=== PATIENT | female | born 1995 | race Caucasian/White ===

== ENCOUNTER 2016-10-30 18:33 | Inpatient (IN) | payer SELFPAY ==
[~2016-10-30] VITALS: Ht 157.5 cm; Wt 96.8 kg
[2016-10-30] MEDS ORDERED: traZODone 50 MG TAB PO PRN (20:00)
[2016-10-30] MEDS ORDERED: MAALOX 30 ML SUSP *UDC PO PRN (20:00)
[2016-10-30] MEDS ORDERED: ACETAMINOPHEN TAB 650MG DOSE (2X325MG) PO PRN (20:00)
[2016-10-30] MEDS ORDERED: MOM 30ML SUSPENSION UDC PO PRN (20:00)
--- NOTE | 2016-10-30 22:10 | EDDOCDS ---
Physician Documentation [facility] Name: Toma Whitaker Age: 21 yrs Sex: Female : 1995 Arrival Date: 10/30/2016 Time: 18:33 Bed BHU1 Private MD: Disposition: 10/30/16 22:08 Hospitalization ordered by Duran Rosenbaum for Inpatient Admission. Preliminary diagnosis is Major depressive disorder, recurrent. - Bed requested for Admit. - Status is Inpatient Admission. rw1 - Condition is Stable. - Problem is chronic. - Symptoms have worsened. Historical: - Allergies: no known allergies; - Home Meds: 1. Implanon Unknown Unknown control implant (Last dose: 10/30/2016) 2. Flexeril 10 mg Oral tab 1 tab prn 3. trazodone 50 mg Oral tab 1 tab prn 4. Effexor 150 mg Oral daily 5. fluoxetine 20 mg Oral cap 1 cap once daily - PMHx: Depression; back pain; - PSHx: none; - Social history: Smoking status: Patient uses tobacco products, light tobacco smoker. No barriers to communication noted, The patient speaks fluent Romansh. - Family history: No immediate family members are acutely ill. - : The pt / caregiver states he / she is not on anticoagulants. Home medication list is obtained from the patient. - Exposure Risk Screening:: None identified. 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 2 in. (157.48 cm); Pain 0/10; 22:05 BP 116 / 73; Pulse 70; Resp 18; Temp 97.4(O); Pulse Ox 98% on R/A; Pain 0/10; rw1 18:45 Body Mass Index 40.06 (99.34 kg, 157.48 cm) mb9 MDM: 19:56 Admit to [facility]: ordered. EDMS 19:56 REGULAR DIET ordered. EDMS 20:14 [facility] Legal paperwork was scanned into Lasso and attached to record. jl 20:28 [facility] Payment Agreement was scanned into [employer] and attached to record. gjb 20:28 Financial registration complete. zeenat Signatures: Dispatcher [employer] EDMS Kenton Santos, PSA PSA jl Ross Fields,ROOFING MACHINE OPERATOR ROOFING MACHINE OPERATOR rw1 Neville Quan,ANSELMO RN mb9 Almaz Ray MD MD fg Beck, Gabriela gjb The chart was reviewed and I authenticate all verbal orders and agree with the evaluation and treatment provided.Attachments: 20:28 [facility] Payment Agreement zeenat MTDD
--- NOTE | 2016-10-30 22:10 | EDDOCDS ---
Nurse's Notes [facility] Name: Toma Whitaker Age: 21 yrs Sex: Female : 1995 Arrival Date: 10/30/2016 Time: 18:33 Bed [facility] Private MD: Diagnosis: Major depressive disorder, recurrent Presentation: 10/30 18:39 Presenting complaint: Patient states: "I overdosed on a suicide attempt". pt reports mb9 she overdosed on her Flexeril and trazodone. pt reports a history of the same. Pt reports her cousin recently committed suicide and feels that is a trigger for this attempt. Mental Health Triage Level: Level 3: The patient presents with recent overdose that might represent a suicide attempt. Adult Sepsis Screening: The patient does not have new or worsening altered mentation. Patient's respiratory rate is less than 22. Systolic blood pressure is greater than 100. Patient has a qSOFA score of 0- Negative Sepsis Screen. Suicide/Homicide risk assessment- The patient admits to and/or has been reported to be having suicidal ideations. Status: Patient is not a cashier self service gasoline or dependent. Transition of care: patient was not received from another setting of care. 18:39 Acuity: IAM Level 3 mb9 18:39 Method Of Arrival: Ambulance mb9 Triage Assessment: 18:45 General: Appears in no apparent distress, Behavior is appropriate for age, cooperative. mb9 Pain: Denies pain. Pt Declines HIV testing. Respiratory: Airway is patent Respiratory effort is even, unlabored. 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 Implanon Unknown Unknown control implant (Last dose: 10/30/2016) 2. Flexeril 10 mg Oral tab 1 tab prn 3. trazodone 50 mg Oral tab 1 tab prn 4. Effexor 150 mg Oral daily 5. fluoxetine 20 mg Oral cap 1 cap once daily - PMHx: Depression; back pain; - PSHx: none; - Social history: Smoking status: Patient uses tobacco products, light tobacco smoker. No barriers to communication noted, The patient speaks fluent Central African. - Family history: No immediate family members are acutely ill. - : The pt / caregiver states he / she is not on anticoagulants. Home medication list is obtained from the patient. - Exposure Risk Screening:: None identified. Screenin:47 Screening information is obtained from the patient. Fall risk: No risks identified. mb9 Assistance ADL's: requires no assistance with activities of daily living. Abuse/DV Screen: The patient / caregiver reports he/she is: not in a situation that causes fear, pain or injury. Nutritional screening: No deficits noted. Advance Directives: There is no active DNR order. home support is adequate. Assessment: 19:15 General: Appears in no apparent distress, comfortable, well developed, well nourished, jp6 well groomed, Behavior is appropriate for age, cooperative, pleasant. Pain: Denies pain. Neurological: No deficits noted. Level of Consciousness is awake, alert, Oriented to person, place, time. EENT: No deficits noted. Cardiovascular: No deficits noted. Capillary refill < 3 seconds Heart tones S1 S2. Respiratory: No deficits noted. Airway is patent Respiratory effort is even, unlabored, Breath sounds are clear bilaterally. GI: No deficits noted. Abdomen is flat, Bowel sounds present X 4 quads. : No deficits noted. Derm: No deficits noted. Skin is pink, warm & dry. Musculoskeletal: No deficits noted. 20:10 General: Appears in no apparent distress, comfortable, Behavior is appropriate for age, rw1 cooperative, pleasant. Pain: Denies pain. Neurological: Level of Consciousness is awake, alert, obeys commands, Oriented to person, place, time. Respiratory: Airway is patent Respiratory effort is even, unlabored. Derm: Skin is pink, warm & dry. normal. 21:05 Reassessment: Patient appears in no apparent distress at this time. awake resting on rw1 stretcher, safety maintained will monitor.. 21:56 Reassessment: Patient appears in no apparent distress at this time. resting quietly on rw1 stretcher, safety maintained will monitor.. Mental Health Eval: 19:13 Mental health consult is initiated at 18:45. Status: The patient is not a cashier self service gasoline or dependent. [facility] Behavioral Health: The patient is not an established patient of [facility] Behavioral Health. Referral Information: Evaluation referral is generated by [facility] telemetry unit. The patient was referred for evaluation because she was admitted there Friday night (early Friday morning) following an intentional overdose of Trazodone & Flexeril in an admitted suicide attempt. Subjective: The patients chief complaint is "I went there [[facility]] about an hour after I took them [the pills]". Delusions are denied. Patient's mood is depressed. Hallucinations are denied. Patient reports having a long h/o depression, dating back to her early teen years. This includes an overdose at age 18, when she was admitted to [facility]. She reports a 2nd hospitalization a few months ago, in order to prevent a suicide attempt. She states that her depression has been worsening over the last 18 months, since her cousin (with whom she was very close) completed suicide by hanging. Patient quickly became tearful & appeared distressed when this subject was approached, prompting a change of subject. In addition to her cousin's suicide, she cited "A lot of things that happened to me when I was younger", as triggers for her depression. Again, she did not elaborate upon those issues. She denied having any acute stressors or obvious precipitating events on Friday, but rather impulsively took the pills. Additionally, she superficially cut both forearms repeatedly, which she reports a long h/o as well. She reports living alone & contacted EMS herself about an hour post-ingestion, as she became frightened that she would suffer some kind of cardiac event. She was observed at [facility] for greater than 48 hours & was medically cleared for [facility]. She denies active SI presently. Mental Health history: anxiety, depression, self -mutilation, sleep disturbance, suicide attempt by overdose at age 18 Mental Health Admissions: [facility]: Age 18 & [facility]: Fall 2015 Current Outpatient Mental Health Services: Therapist / Agency: [facility] in [place], [place]. Current living environment is The patient currently lives alone. Patient presents to Emergency Department with the following symptoms within the past 2 weeks: depressed mood, feelings of helplessness/hopelessness, poor impulse control, Patient has mutilated themselves by cutting their right arm and left arm sleep disturbance - insomnia, suicidal ideation with attempt/gesture by pills. Substance abuse: Pt denies. Mental status exam: Patients appearance is appropriate, Patient's behavior is cooperative, Speech is normal. Affect is restricted. Mood is depressed. Hallucinations are denied. Appetite is normal. Memory is good. Energy level is normal. Content of thought is normal. Thought process is intact. Cognitive level is oriented to person, place, time and situation Patient's insight is fair. Judgement is poor. Rapport with interviewer is good. Suicidal Ideation is denied. Homicidal ideation is denied. 19:55 Disposition: Medically cleared for disposition by Almaz Ray MD Psychiatric Consult jl is performed by phone with Dr Duran Rosenbaum. [facility] Admission Criteria: The patient has had a suicide attempt in the recent past. The patient requires continuous observation and/or control to protect self, others or property. The patient's care requires a multi-modal treatment plan under close supervision and coordination due to the complexity and severity of the patient's symptoms. Legal Status: Patient's legal status will be Emergency admission: . [place] Safe [place]: [place] Safe Act is applicable to this patient. The patient poses a risk to self or other and the Nursing Area Operations Director has been notified. He/She will enter the patient's data. DSM-V Differential Diagnosis: Major Depressive Disorder recurrent episode (F33.0) severe (F33.2). 20:04 Narrative: Mother called to check on PT. jfb 20:29 Insurance Pre-Certification: Not required, as patient states that she is self-pay. [place] Vital Signs: 18:45 BP 135 / 72; Pulse 87; Resp 17; Temp 99.5(O); Pulse Ox 99% ; Weight 99.34 kg; Height 5 mb9 ft. 2 in. (157.48 cm); Pain 0/10; 22:05 BP 116 / 73; Pulse 70; Resp 18; Temp 97.4(O); Pulse Ox 98% on R/A; Pain 0/10; rw1 18:45 Body Mass Index 40.06 (99.34 kg, 157.48 cm) mb9 Vitals: 18:45 Log In Time N/A - ambulance arrival. mb9 ED Course: 18:38 Patient visited by Orly Méndez. gjb 18:38 Patient moved to [facility] gjb 18:38 Patient moved to [facility] mb9 18:42 Triage Initiated mb9 18:47 The patient / caregiver is instructed regarding the plan of care and ED course. mb9 18:47 No IV's were initiated during this patient's visit. No procedures done that require mb9 assistance. 19:02 Psych Safety Check: Location: Psych Room. Visual Assessment: Cooperative. sew 19:03 Patient visited by Arely Treviño. sew 19:08 Ani Recio,RN is Primary Nurse. jp6 19:09 Ani Recio,RN is Primary Nurse. jp6 19:17 Almaz Ray MD is Attending Physician. fg 19:17 Patient visited by Almaz Ray MD. fg 19:27 Patient visited by Ross Fields LPN. rw1 19:41 Patient visited by Ross Fields LPN. rw1 20:01 Patient visited by Rodger Lucia. tr 20:14 E Legal paperwork was scanned into [employer] and attached to record. jl 20:18 Patient visited by Ross Fields LPN. rw1 20:28 [facility] Payment Agreement was scanned into [employer] and attached to record. gjb 20:31 Patient visited by Rodger Lucia. tr 20:48 Patient visited by Rodger Lucia. tr 21:00 Patient visited by Rodger Lucia. tr 21:21 Patient visited by Ross Fields LPN. rw1 21:34 Patient visited by Rodger Lucia. tr 22:04 Patient visited by Ross Fields LPN. rw1 22:08 Duran Rosenbaum is Hospitalizing Provider. fg Attachments: 20:14 E Legal paperwork jl Order Results: There are currently no results for this order. Outcome: 22:05 Discharge Assessment: Patient awake, alert and oriented x 3. No cognitive and/or rw1 functional deficits noted. Patient verbalized understanding of disposition instructions. patient administered narcotics - no. The following High Risk Discharge criteria are identified: Admitted to Psych accompanied by tech, via wheelchair, with chart. Condition: stable. No special radiology studies were completed. Property removed, inventory done, secured in belongings bag- given to [facility] staff. 22:08 Decision to Hospitalize by Provider. fg 22:09 Patient left the ED. rw1 Signatures: Kenton Santos, DAYLIN PSA Rodger Lundy Robert, LPN LPN rw1 Paula Mckoy, PSA PSA Arely Angel Michael,RN RN mb9 Almaz Ray MD MD fg Beck, Gabriela Ani Espinoza,RN RN jp6 MTDD
[2016-10-30 22:17] VITALS: BP 135/87
[2016-10-30] MEDS ORDERED: IBUP800T23 PO (22:53)
[2016-10-30] MEDS ORDERED: CYCL10TA PO (22:53)
[2016-10-30] MEDS ORDERED: EFFE150C PO (22:53)
[2016-10-30] MEDS ORDERED: NEXP68IM SC (22:53)
[2016-10-30] MEDS ORDERED: TRAZ50TA4 PO (22:53)
[2016-10-31 06:20] VITALS: BP 122/68
--- NOTE | 2016-10-31 10:34 | HPEPDOC ---
Medical History and Physical Date of Admission Oct 30, 2016 at 22:17 History and Physical PCP: Dr Anderson. ATTENDING: Dr. Tawanda Mas HPI: 21yoF admitted to [facility] for MDD, being medically examined today. Pt transferred from [facility] ED following medical stabilization for presumed trazodone/cyclobenzaprine overdose. Patient denies chest pain, shortness of breath, racing heartbeat or fluttering, lightheadedness or dizziness however states she has a sensation of the beating of her heart. She states she did injure her low back at work a few months ago however does not report low back pain currently. Denies any fevers, chills, weakness, fatigue, LARES, cough, palpitations, abdominal pain, N/V/D or changes in bowel or bladder habits. PMHx: Depression H/O SI, OD attempt 18 yo. Self-mutilation back pain/LB injury- 3 months ago at work Tobacco use obesity BMI 40.1 TTE [facility] 10/28/16 Nml Systolic function, EF 55-60%. PSHX: [place] teeth extraction Nexplanon. SOCHX: Resides in: [facility]. 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 ROS: As noted in HPI, otherwise 11pt ROS of systems reviewed and remarkable only for LMP irregular, patient with Nexplanon. PE: GEN: 21yoF, appears stated age. Well-nourished, well developed. No acute distress. Alert and oriented x 3. Pleasant, interactive. HEENT: Normocephalic, atraumatic. Pupils are equal, round, and reactive to light. Extraocular movements are intact. No nystagmus appreciated. Sclera are nonicteric. Conjunctiva without injection. Nose midline. Nasal turbinates without bogginess. EACs both patent BL. TMs both visualized and rodriguez with good cone of light, no bulging or erythema. No facial asymmetry. Moist mucous membranes. Dentition fair. Pharynx pink and moist, no cobblestoning. Neck supple , trachea midline. No lymphadenopathy or thyromegaly appreciated. CHEST: Regular rate and rhythm, +S1, +S2 LUNGS: Clear to auscultation bilaterally. No wheezes, rales, or rhonchi. Breathing appears symmetric and easy. Patient is speaking in full sentences. No accessory muscle use. ABD: Round, soft, non-tender, non-distended. +Bowel sounds throughout. No rebound or guarding. No costovertebral angle tenderness. EXT: Pulses 2+ bilaterally dorsalis pedis and radial. No lower extremity edema appreciated. SKIN: Experiment, dry, warm. Capillary refill <2sec. No rashes. Healed self inflicted lacerations are noted on the abdomen, Rt flank area. Self-inflicted superficial lacerations are noted on the forearms bilaterally, Rt thigh which the patient states are approximately 4-5 days old. NEURO: Alert and oriented x 3. Cranial nerves III-XII are intact. No focal deficits appreciated. EKG: [facility]: SR/SA 80bpm, NSST abn. [facility]: WBC 10.3 Hgb 15.6 Hct 47.3 Plt 215 UA neg. Na 142 K 4.1 Cl 108 BUN 6 SCr 0.55 Gluc 105 AST 12 ALT 25 CK 65 Troponin < 0 . 034 Amylase 55 Lipase 68 TSH 2.140 FT4 1.40 HCG neg. Toxicology remarkable for cannabinoid. CXR NAD. A&P: 21yoF admitted to [facility] for MDD 1. Psych. Plan per Psychiatry. Update EKG 2. Nicotine dependence. Patch available. 3. Palpitation. Update EKG. 4. Follow up with PCP on discharge. Dr Anderson. 5. Substance use. Per psychiatry. 6. Superficial lacerations bilateral forearms. Healing. No signs of infection. Keep areas clean and dry. Monitor. 7. History of low back pain. Continue Tylenol as needed. 8. Accompanied by staff member throughout examination, Briana Mary RN. Vital Signs Vital Signs Label Value Date Time Patient Temperature 97.6 degrees F 10/31/16 0620 Temperature Source Tympanic 10/31/16 0620 Pulse 87 10/31/16 0620 Respiratory Rate 20 bpm 10/31/16 0620 Blood Pressure Assessment 122/68 (86) 10/31/16 0620 Home Medications Scheduled Etonogestrel (Nexplanon) 68 Mg Imp 68 MG SC ASDIRECTED CONTROL IMPLANTED SOMETIME IN MARCH 2016 Venlafaxine Hydrochloride (Effexor Xr) 150 Mg Cap 150 MG PO DAILY DEPRESSION Scheduled PRN Cyclobenzaprine HCl (Cyclobenzaprine HCl) 10 Mg Tab 10 MG PO TID PRN PRN MUSCLE SPASMS Ibuprofen (Ibuprofen) 800 Mg Tab 800 MG PO QID PRN PRN HEADACHE OR PAIN Trazodone HCl (Trazodone HCl) 50 Mg Tab 50 MG PO QHS PRN PRN SLEEP Allergies Coded Allergies: No Known Drug Allergy (Verified Allergy, Unknown, 10/30/16) Nemo De La O Oct 31, 2016 10:34
--- NOTE | 2016-10-31 17:28 | HPEPDOC ---
[facility] History & Physical History and Physical DATE OF ADMISSION: Oct 30, 2016 at 22:17 CHIEF COMPLAINT: "I had an impulsive suicide attempt." "There wasn't anything going on, I wanted to talk to my cousin and I couldn't ". Patient states her cousin killed himself approximately 15 months ago. Patient states he hung himself and was out of the blue, not expected. Patient states besides being her cousin, he was her best friend. HISTORY OF THE PRESENT ILLNESS: Patient states she was a little down and was missing her cousin. Patient states there were no extra stressors, recent tragic events, deaths, family or work drama. Patient states she has had one other suicide attempt when she was 17 years old. That was also an overdose, however patient states she was not admitted as she lied to the physician denying she wanted to and was sent home. Patient states prior to her admission in August she started cutting again for the release. Prior to that patient hadn' t cut for 3 years. PAST PSYCHIATRIC HISTORY: Patient states she's had 3 psychiatric events. The first was at age 17 when she overdosed on some medication. She was evaluated in the ER but not admitted. Patient states she talked doctors out of admission. Second event was when she was 18 years old and self harming. Patient states she had suicidal thoughts at school and was sent [facility] child and adolescent unit. Patient feels this was a situational depression as her great-grandmother had just . Patient states her third event was when she was 21 years old. In that admission she had started cutting again and was having suicidal thoughts. Patient states since age 17 when she cuts it's for the release. Patient states she does not cut to try to kill herself and bleed to or anything like that, it is only for the release. MEDICAL HISTORY: Patient is overweight and has smoked a half a pack a day 7 years. Patient denies any other medical health issues. HOME MEDICATIONS: Please see below. CURRENT MEDS: Trazodone 100 mg by mouth daily at bedtime as needed for sleep, Effexor XR 150 mg by mouth every morning. Patient states she's been on rapid release Effexor which is not available through our hospital formulary. ALLERGIES: Please see below. FAMILY PSYCHIATRIC HISTORY: Patient states mom has anxiety patient states dad abuses alcohol. Patient states her cousin had suicide attempts at 17 and 18 years old and was successful at 20. Patient states her cousin had been in therapy and appeared to be feeling better with his illness. Patient denies any other family members with mental or psychiatric illness. 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 Patient states she left high school to work and has not gotten her diploma as of yet. SUBSTANCE ABUSE HISTORY: Patient denies any alcohol use. Patient states she "smokes weed" 3 times a week to help her sleep. states she gets 4-5 hours of sleep without smoking weed patient states when she does smoke weed she gets 8 hours of sleep. LEGAL HISTORY: Patient denies. VITAL SIGNS: Blood pressure 122/68, pulse 87, respirations 20, temperature 97.6 LABORATORY DATA: Please see below. No labs drawn yet for this admission. MENTAL STATUS EXAMINATION: Patient is a 21-year-old overweight female who is pleasant and cooperative. Patient is currently wearing hospital scrubs and T- shirt. Patient appears well-groomed. Patient was assessed in her room. Patient was laying in bed but did get up when provider came in. Speech: Is of normal rate and volume. Patient is articulate, coherent and spontaneous Thought processes: Clear and somewhat goal directed. Thought content: Logical and rational. Abstract reasoning: Adequate Computation: Adequate Associations: Intact. Abnormal or psychotic thoughts: Patient denies hallucinations delusions obsessions compulsions. Patient denies homicidal or suicidal ideation. Patient is preoccupied with her cousin's from 15 months ago. Judgment: Fair. Insight: Fair. Oriented to: Time, place, person and surroundings. Recent/ remote memory: Patient feels her memory worsens with stress or lack of sleep. Attention span and concentration: Good. Language: No. Fund of knowledge : Adequate. Mood: "Pretty good, I feel good (Hopeful) ". Affect: Sad, Appropriate, rational, logical. ASSESSMENT: Patient laying in bed when initially approached. Patient sits up and responds appropriately when provider comes into her room. Patient noted to be in the hallways and activity room for meals and activities. Patient is pleasant and cooperative and easily engaged. Patient's affect seems sad, patient appears to be putting on a strong front that everything's okay when she very well may be hurting inside. Patient denies hallucinations delusions obsessions compulsions. Patient denies homicidal or suicidal ideation. Patient is preoccupied with her cousin's from 15 months ago. Patient requesting that Effexor XR 150 mg is restarted. Patient is encouraged to participate in unit programming and activities. Patient states that when she is ready she would like to discharge home and follow up with her provider in the [place] area. DIAGNOSES: 1. Prolonged grief 2. Adjustment reaction mixed with effect on mood and conduct. 3. Major depressive disorder. PROBLEM LIST: 1. Prescription for self injury. 2. Depression from prolonged grief. 3. Ineffective coping. MANAGEMENT PLAN: Patient to acclimate to the unit. Patient to attend groups and participate in unit programming to develop effective coping strategies. Maintain safety precautions. Patient to be engaged in discharge planning process to ensure safe and effective discharge plan. Patient to follow-up with primary care physician upon discharge. Patient to resume therapy upon discharge. Meds to be restarted/ started. In to be evaluated for mood stabilization and affect. ESTIMATED LENGTH OF STAY: 6-9 days. Medications Scheduled Etonogestrel (Nexplanon) 68 Mg Imp 68 MG SC ASDIRECTED CONTROL (Reported) IMPLANTED SOMETIME IN MARCH 2016 Venlafaxine Hydrochloride (Effexor Xr) 150 Mg Cap 150 MG PO DAILY DEPRESSION ( Reported) Scheduled PRN Cyclobenzaprine HCl (Cyclobenzaprine HCl) 10 Mg Tab 10 MG PO TID PRN PRN MUSCLE SPASMS (Reported) Ibuprofen (Ibuprofen) 800 Mg Tab 800 MG PO QID PRN PRN HEADACHE OR PAIN ( Reported) Trazodone HCl (Trazodone HCl) 50 Mg Tab 50 MG PO QHS PRN PRN SLEEP (Reported) Allergies Coded Allergies: No Known Drug Allergy (Verified Allergy, Unknown, 10/30/16) MAXIMUS DEVINE NP Oct 31, 2016 17:28
[2016-10-31 18:00] VITALS: BP 133/78
[2016-10-31] MEDS: VENLAFAXINE **XR** 75MG CAPSULE PO SCH (19:01)
[2016-10-31] MEDS: traZODone 100 MG TAB PO PRN (23:02)
[2016-11-01 06:13] VITALS: BP 127/73
[2016-11-01] MEDS: VENLAFAXINE **XR** 75MG CAPSULE PO SCH (08:28)
--- NOTE | 2016-11-01 09:46 | ECGEPIP ---
Stationary ECG Study [facility] Test Date: 2016-10-31 Pat Name: ARELI DAMICO Department: Room: [place] [address] Gender: F Cardiac Rn: ANNE : 1995 Requested By: Nemo De La O Order Number: [id number] Reading MD: Tawanda Mas Measurements Intervals [place] Rate: 86 P: 58 GA: 142 QRS: 54 QRSD: 80 T: 12 QT: 334 QTc: 400 Interpretive Statements SINUS RHYTHM Comparison tracing not on file Electronically Signed On 11-01-2016 9:46:47 EST by Tawanda Mas
--- NOTE | 2016-11-01 15:25 | IPNPDOC ---
[facility] Progress Note Progress Note DATE OF SERVICE: 11/01/16 HISTORY: Patient states she was a little down and was missing her cousin. "I had an impulsive suicide attempt." "There wasn't anything going on, I wanted to talk to my cousin and I couldn't ". Patient states her cousin killed himself approximately 15 months ago. Patient states he hung himself and was out of the blue, not expected. Patient states besides being her cousin, he was her best friend.Patient states there were no extra stressors, recent tragic events, deaths, family or work drama. Patient states she has had one other suicide attempt when she was 17 years old. That was also an overdose, however patient states she was not admitted as she lied to the physician denying she wanted to and was sent home. Patient states prior to her admission in August she started cutting again for the release. Prior to that patient hadn't cut for 3 years. PAST PSYCHIATRIC HISTORY: Patient states she's had 3 psychiatric events. The first was at age 17 when she overdosed on some medication. She was evaluated in the ER but not admitted. Patient states she talked doctors out of admission. Second event was when she was 18 years old and self harming. Patient states she had suicidal thoughts at school and was sent [facility] child and adolescent unit. Patient feels this was a situational depression as her great-grandmother had just . Patient states her third event was when she was 21 years old. In that admission she had started cutting again and was having suicidal thoughts. Patient states since age 17 when she cuts it's for the release. Patient states she does not cut to try to kill herself and bleed to or anything like that, it is only for the release. MENTAL STATUS EXAMINATION: Patient is a 21-year-old overweight female who is pleasant and cooperative. Patient is currently wearing hospital scrubs and T- shirt. Patient appears well-groomed. Patient was assessed in her room. Patient was laying in bed but did get up when provider came in. Speech: Is of normal rate and volume. Patient is articulate, coherent and spontaneous Thought processes: Clear and somewhat goal directed. Thought content: Logical and rational. Abstract reasoning: Adequate Computation: Adequate Associations: Intact. Abnormal or psychotic thoughts: Patient denies hallucinations delusions obsessions compulsions. Patient denies homicidal or suicidal ideation. Patient is preoccupied with her cousin's from 15 months ago. Judgment: Fair. Insight: Fair. Oriented to: Time, place, person and surroundings. Recent/ remote memory: Patient feels her memory worsens with stress or lack of sleep. Attention span and concentration: Good. Language: No. Fund of knowledge : Adequate. Mood: "Pretty good, I feel good (Hopeful) ". Affect: Sad, Appropriate, rational, logical. DIAGNOSES: 1. Prolonged grief. 2. Adjustment reaction mixed with effect on mood and conduct. 3. Major depressive disorder. ASSESSMENT: Patient laying in bed, sleeping when initially approached. Patient sits up and responds appropriately when provider comes into her room. Patient noted to be in the hallways and activity room for meals and activities. Patient is pleasant and cooperative and easily engaged. Patient's affect seems sad, patient appears to be putting on a strong front that everything's okay when she very well may be hurting inside. Patient denies hallucinations, delusions, compulsions. Pt. states she is obsessed by counting, everything has to be an even number. Patient denies homicidal or suicidal ideation. Patient is preoccupied with her cousin's from 15 months ago. Effexor XR 150 mg was restarted per patient request. Patient is encouraged to participate in unit programming and activities. Patient states that when she is ready she would like to discharge home and follow up with her provider in the [place] area. Pt. to continue Trazodone 100 mg by mouth daily at bedtime as needed for sleep, Effexor XR 150 mg by mouth every morning. Patient states she's been on rapid release Effexor which is not available through our hospital formulary. MANAGEMENT PLAN: Patient to acclimate to the unit. Patient to attend groups and participate in unit programming to develop effective coping strategies. Maintain safety precautions. Patient to be engaged in discharge planning process to ensure safe and effective discharge plan. Patient to follow-up with primary care physician upon discharge. Patient to resume therapy upon discharge. Meds to be restarted/started. In to be evaluated for mood stabilization and affect. Vital Signs/I&O Vital Signs Date Time Temp Pulse Resp B/P Pulse Ox O2 Delivery O2 Flow Rate FiO2 11/01/16 06:13 97.6 100 16 127/73 Current Medications Current Medications Acetaminophen (Tylenol) 650 mg Q6HP PRN PO HEADACHE or DISCOMFORT; Start at 20:00; Stop 11/29/16 at 19:59 Al Hydrox/Mg Hydrox/Simethicone (Mylanta) 30 ml Q4HP PRN PO HEARTBURN/ INDIGESTION; Start 10/30/16 at 20:00; Stop 11/29/16 at 19:59 Home Med (Med Rec Complete!) ASDIRECTED XX ; Start 10/30/16 at 23:00; Stop 09/05 at 23:00; Status DC Magnesium Hydroxide (Milk Of Magnesia) 30 ml DAILYPRN PRN PO CONSTIPATION; Start 10/30/16 at 20:00; Stop 11/29/16 at 19:59 Trazodone HCl (Desyrel) 50 mg QHSP PRN PO INSOMNIA; Start 10/30/16 at 20:00; Stop 10/31/16 at 17:35; Status DC Trazodone HCl (Desyrel) 100 mg QHSP PRN PO INSOMNIA Last administered on 23:02; Start 10/31/16 at 17:45; Stop 11/30/16 at 17:44 Venlafaxine HCl (Effexor Xr) 150 mg QAM PO Last administered on 11/01/16 08:28; Start 10/31/16 at 09:00; Stop 11/30/16 at 08:59 Allergies Coded Allergies: No Known Drug Allergy (Verified Allergy, Unknown, 10/30/16) MAXIMUS DEVINE NP Nov 01, 2016 15:25
[2016-11-01 18:00] VITALS: BP 130/71
--- NOTE | 2016-11-01 23:10 | EDDOCDS ---
Physician Documentation [facility] Name: Toma Whitaker Age: 21 yrs Sex: Female : 1995 Arrival Date: 10/30/2016 Time: 18:33 Bed BHU1 Private MD: Disposition: 10/30/16 22:08 Hospitalization ordered by Duran Rosenbaum for Inpatient Admission. Preliminary diagnosis is Major depressive disorder, recurrent. - Bed requested for Admit. - Status is Inpatient Admission. rw1 - Condition is Stable. - Problem is chronic. - Symptoms have worsened. Historical: - Allergies: no known allergies; - Home Meds: 1. Implanon Unknown Unknown control implant (Last dose: 10/30/2016) 2. Flexeril 10 mg Oral tab 1 tab prn 3. trazodone 50 mg Oral tab 1 tab prn 4. Effexor 150 mg Oral daily 5. fluoxetine 20 mg Oral cap 1 cap once daily - PMHx: Depression; back pain; - PSHx: none; - Social history: Smoking status: Patient uses tobacco products, light tobacco smoker. No barriers to communication noted, The patient speaks fluent Khmer. - Family history: No immediate family members are acutely ill. - : The pt / caregiver states he / she is not on anticoagulants. Home medication list is obtained from the patient. - Exposure Risk Screening:: None identified. 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 2 in. (157.48 cm); Pain 0/10; 22:05 BP 116 / 73; Pulse 70; Resp 18; Temp 97.4(O); Pulse Ox 98% on R/A; Pain 0/10; rw1 18:45 Body Mass Index 40.06 (99.34 kg, 157.48 cm) mb9 MDM: 19:56 Admit to [facility]: ordered. EDMS 19:56 REGULAR DIET ordered. EDMS 20:14 MHE Legal paperwork was scanned into [employer] and attached to record. jl 20:28 [facility] Payment Agreement was scanned into [employer] and attached to record. gjb :28 Financial registration complete. gjb 10/31 09:56 T-Sheet-- Draft Copy was scanned into [employer] and attached to record. gb 09:56 PCR was scanned into [employer] and attached to record. gb Signatures: Dispatcher [employer] EDMS Kenton Santos, PSA PSA Eugenie Sandhu, Reg Reg gb Ross Fields LPN LPN rw1 Neville Quan,ANSELMO RN mb9 Almaz Ray MD MD fg Beck, Gabriela gjb The chart was reviewed and I authenticate all verbal orders and agree with the evaluation and treatment provided.Attachments: :28 [facility] Payment Agreement gjb 10/31 09:56 T-Sheet-- Draft Copy gb Chart Complete MTDD
--- NOTE | 2016-11-01 23:10 | EDDOCDS ---
Nurse's Notes [facility] Name: Toma Whitaker Age: 21 yrs Sex: Female : 1995 Arrival Date: 10/30/2016 Time: 18:33 Bed [facility] Private MD: Diagnosis: Major depressive disorder, recurrent Presentation: 10/30 18:39 Presenting complaint: Patient states: "I overdosed on a suicide attempt". pt reports mb9 she overdosed on her Flexeril and trazodone. pt reports a history of the same. Pt reports her cousin recently committed suicide and feels that is a trigger for this attempt. Mental Health Triage Level: Level 3: The patient presents with recent overdose that might represent a suicide attempt. Adult Sepsis Screening: The patient does not have new or worsening altered mentation. Patient's respiratory rate is less than 22. Systolic blood pressure is greater than 100. Patient has a qSOFA score of 0- Negative Sepsis Screen. Suicide/Homicide risk assessment- The patient admits to and/or has been reported to be having suicidal ideations. Status: Patient is not a business services sales agent or dependent. Transition of care: patient was not received from another setting of care. 18:39 Acuity: IAM Level 3 mb9 18:39 Method Of Arrival: Ambulance mb9 Triage Assessment: 18:45 General: Appears in no apparent distress, Behavior is appropriate for age, cooperative. mb9 Pain: Denies pain. Pt Declines HIV testing. Respiratory: Airway is patent Respiratory effort is even, unlabored. UX INFORMATION ARCHITECT: 18:45 LMP N/A - Irregular menses mb9 Historical: - Allergies: no known allergies; - Home Meds: 1. Implanon Unknown Unknown control implant (Last dose: 10/30/2016) 2. Flexeril 10 mg Oral tab 1 tab prn 3. trazodone 50 mg Oral tab 1 tab prn 4. Effexor 150 mg Oral daily 5. fluoxetine 20 mg Oral cap 1 cap once daily - PMHx: Depression; back pain; - PSHx: none; - Social history: Smoking status: Patient uses tobacco products, light tobacco smoker. No barriers to communication noted, The patient speaks fluent Malian. - Family history: No immediate family members are acutely ill. - : The pt / caregiver states he / she is not on anticoagulants. Home medication list is obtained from the patient. - Exposure Risk Screening:: None identified. Screenin:47 Screening information is obtained from the patient. Fall risk: No risks identified. mb9 Assistance ADL's: requires no assistance with activities of daily living. Abuse/DV Screen: The patient / caregiver reports he/she is: not in a situation that causes fear, pain or injury. Nutritional screening: No deficits noted. Advance Directives: There is no active DNR order. home support is adequate. Assessment: 19:15 General: Appears in no apparent distress, comfortable, well developed, well nourished, jp6 well groomed, Behavior is appropriate for age, cooperative, pleasant. Pain: Denies pain. Neurological: No deficits noted. Level of Consciousness is awake, alert, Oriented to person, place, time. EENT: No deficits noted. Cardiovascular: No deficits noted. Capillary refill < 3 seconds Heart tones S1 S2. Respiratory: No deficits noted. Airway is patent Respiratory effort is even, unlabored, Breath sounds are clear bilaterally. GI: No deficits noted. Abdomen is flat, Bowel sounds present X 4 quads. : No deficits noted. Derm: No deficits noted. Skin is pink, warm & dry. Musculoskeletal: No deficits noted. 20:10 General: Appears in no apparent distress, comfortable, Behavior is appropriate for age, rw1 cooperative, pleasant. Pain: Denies pain. Neurological: Level of Consciousness is awake, alert, obeys commands, Oriented to person, place, time. Respiratory: Airway is patent Respiratory effort is even, unlabored. Derm: Skin is pink, warm & dry. normal. 21:05 Reassessment: Patient appears in no apparent distress at this time. awake resting on rw1 stretcher, safety maintained will monitor.. 21:56 Reassessment: Patient appears in no apparent distress at this time. resting quietly on rw1 stretcher, safety maintained will monitor.. Mental Health Eval: 19:13 Mental health consult is initiated at 18:45. Status: The patient is not a business services sales agent or dependent. [facility] Behavioral Health: The patient is not an established patient of [facility] Behavioral Health. Referral Information: Evaluation referral is generated by [facility] telemetry unit. The patient was referred for evaluation because she was admitted there Friday night (early Friday morning) following an intentional overdose of Trazodone & Flexeril in an admitted suicide attempt. Subjective: The patients chief complaint is "I went there [[facility]] about an hour after I took them [the pills]". Delusions are denied. Patient's mood is depressed. Hallucinations are denied. Patient reports having a long h/o depression, dating back to her early teen years. This includes an overdose at age 18, when she was admitted to [facility] [place] [place]. She reports a 2nd hospitalization a few months ago, in order to prevent a suicide attempt. She states that her depression has been worsening over the last 18 months, since her cousin (with whom she was very close) completed suicide by hanging. Patient quickly became tearful & appeared distressed when this subject was approached, prompting a change of subject. In addition to her cousin's suicide, she cited "A lot of things that happened to me when I was younger", as triggers for her depression. Again, she did not elaborate upon those issues. She denied having any acute stressors or obvious precipitating events on Friday, but rather impulsively took the pills. Additionally, she superficially cut both forearms repeatedly, which she reports a long h/o as well. She reports living alone & contacted EMS herself about an hour post-ingestion, as she became frightened that she would suffer some kind of cardiac event. She was observed at [facility] for greater than 48 hours & was medically cleared for [facility]. She denies active SI presently. Mental Health history: anxiety, depression, self -mutilation, sleep disturbance, suicide attempt by overdose at age 18 Mental Health Admissions: [facility] [place] [place]: Age 18 & [facility]: Fall 2015 Current Outpatient Mental Health Services: Therapist [facility] [place], [place]. Current living environment is The patient currently lives alone. Patient presents to Emergency Department with the following symptoms within the past 2 weeks: depressed mood, feelings of helplessness/hopelessness, poor impulse control, Patient has mutilated themselves by cutting their right arm and left arm sleep disturbance - insomnia, suicidal ideation with attempt/gesture by pills. Substance abuse: Pt denies. Mental status exam: Patients appearance is appropriate, Patient's behavior is cooperative, Speech is normal. Affect is restricted. Mood is depressed. Hallucinations are denied. Appetite is normal. Memory is good. Energy level is normal. Content of thought is normal. Thought process is intact. Cognitive level is oriented to person, place, time and situation Patient's insight is fair. Judgement is poor. Rapport with interviewer is good. Suicidal Ideation is denied. Homicidal ideation is denied. 19:55 Disposition: Medically cleared for disposition by Almaz Ray MD Psychiatric Consult jl is performed by phone with Dr Duran Rosenbaum. [facility] Admission Criteria: The patient has had a suicide attempt in the recent past. The patient requires continuous observation and/or control to protect self, others or property. The patient's care requires a multi-modal treatment plan under close supervision and coordination due to the complexity and severity of the patient's symptoms. Legal Status: Patient's legal status will be Emergency admission: . [place] Safe Act: [place] Safe Act is applicable to this patient. The patient poses a risk to self or other and the Nursing Solution Mixer has been notified. He/She will enter the patient's data. DSM-V Differential Diagnosis: Major Depressive Disorder recurrent episode (F33.0) severe (F33.2). 20:04 Narrative: Mother called to check on PT. jfb 20:29 Insurance Pre-Certification: Not required, as patient states that she is self-pay. [place] Vital Signs: 18:45 BP 135 / 72; Pulse 87; Resp 17; Temp 99.5(O); Pulse Ox 99% ; Weight 99.34 kg; Height 5 mb9 ft. 2 in. (157.48 cm); Pain 0/10; 22:05 BP 116 / 73; Pulse 70; Resp 18; Temp 97.4(O); Pulse Ox 98% on R/A; Pain 0/10; rw1 18:45 Body Mass Index 40.06 (99.34 kg, 157.48 cm) mb9 Vitals: 18:45 Log In Time N/A - ambulance arrival. mb9 ED Course: 18:38 Patient visited by Orly Méndez. gjb 18:38 Patient moved to [facility] gjb 18:38 Patient moved to [facility] mb9 18:42 Triage Initiated mb9 18:47 The patient / caregiver is instructed regarding the plan of care and ED course. mb9 18:47 No IV's were initiated during this patient's visit. No procedures done that require mb9 assistance. 19:02 Psych Safety Check: Location: Psych Room. Visual Assessment: Cooperative. sew 19:03 Patient visited by Arely Treviño. sew 19:08 Ani Recio,RN is Primary Nurse. jp6 19:09 Ani Recio,RN is Primary Nurse. jp6 19:17 Almaz Ray MD is Attending Physician. fg 19:17 Patient visited by Almaz Ray MD. fg 19:27 Patient visited by Ross Fields LPN. rw1 19:41 Patient visited by Ross Fields LPN. rw1 20:01 Patient visited by Rodger Lucia. tr 20:14 E Legal paperwork was scanned into [employer] and attached to record. jl 20:18 Patient visited by Ross Fields LPN. rw1 20:28 [facility] Payment Agreement was scanned into [employer] and attached to record. gjb 20:31 Patient visited by Rodger Lucia. tr 20:48 Patient visited by Rodger Lucia. tr 21:00 Patient visited by Rodger Lucia. tr 21:21 Patient visited by Ross Fields LPN. rw1 21:34 Patient visited by Rodger Lucia. tr 22:04 Patient visited by Ross Fields LPN. rw1 22:08 Duran Rosenbaum is Hospitalizing Provider. fg 10/31 09:56 T-Sheet-- Draft Copy was scanned into [employer] and attached to record. gb 09:56 PCR was scanned into [employer] and attached to record. gb Attachments: 10/30 20:14 E Legal paperwork jl Order Results: There are currently no results for this order. Outcome: 10/30 22:05 Discharge Assessment: Patient awake, alert and oriented x 3. No cognitive and/or rw1 functional deficits noted. Patient verbalized understanding of disposition instructions. patient administered narcotics - no. The following High Risk Discharge criteria are identified: Admitted to Psych accompanied by tech, via wheelchair, with chart. Condition: stable. No special radiology studies were completed. Property removed, inventory done, secured in belongings bag- given to [facility] staff. 22:08 Decision to Hospitalize by Provider. fg 22:09 Patient left the ED. rw1 Signatures: Kenton Santos, PSA PSA jl Eugenie Keys, Reg Reg gb Rodger Lucia tr Ross Fields LPN LPN rw1 Paula Mckoy PSA PSA Arely Angel MichaelRN RN mb9 Almaz Ray MD MD fg Beck, Gabriela gjb Palmer, JessicaRN RN jp6 Chart Complete MTDD
--- NOTE | 2016-11-01 23:10 | EDDOCDS ---
Physician Documentation [facility] Name: Toma Whitaker Age: 21 yrs Sex: Female : 1995 Arrival Date: 10/30/2016 Time: 18:33 Bed [facility] Private MD: Disposition: 10/30/16 22:08 Hospitalization ordered by Duran Rosenbaum for Inpatient Admission. Preliminary diagnosis is Major depressive disorder, recurrent. - Bed requested for Admit. - Status is Inpatient Admission. rw1 - Condition is Stable. - Problem is chronic. - Symptoms have worsened. Historical: - Allergies: no known allergies; - Home Meds: 1. Implanon Unknown Unknown control implant (Last dose: 10/30/2016) 2. Flexeril 10 mg Oral tab 1 tab prn 3. trazodone 50 mg Oral tab 1 tab prn 4. Effexor 150 mg Oral daily 5. fluoxetine 20 mg Oral cap 1 cap once daily - PMHx: Depression; back pain; - PSHx: none; - Social history: Smoking status: Patient uses tobacco products, light tobacco smoker. No barriers to communication noted, The patient speaks fluent Croatian. - Family history: No immediate family members are acutely ill. - : The pt / caregiver states he / she is not on anticoagulants. Home medication list is obtained from the patient. - Exposure Risk Screening:: None identified. GLEASON OPERATOR: 10/30 18:45 LMP N/A - Irregular menses mb9 Vital Signs: 18:45 BP 135 / 72; Pulse 87; Resp 17; Temp 99.5(O); Pulse Ox 99% ; Weight 99.34 kg / 219.01 mb9 lbs; Height 5 ft. 2 in. (157.48 cm); Pain 0/10; 22:05 BP 116 / 73; Pulse 70; Resp 18; Temp 97.4(O); Pulse Ox 98% on R/A; Pain 0/10; rw1 18:45 Body Mass Index 40.06 (99.34 kg, 157.48 cm) mb9 MDM: 19:56 Admit to [facility]: ordered. EDMS 19:56 REGULAR DIET ordered. EDMS 20:14 [facility] Legal paperwork was scanned into [employer] and attached to record. jl 20:28 [facility] Payment Agreement was scanned into [employer] and attached to record. gjb :28 Financial registration complete. gjb 10/31 09:56 T-Sheet-- Draft Copy was scanned into [employer] and attached to record. gb 09:56 PCR was scanned into [employer] and attached to record. gb Signatures: Dispatcher [employer] EDMS Kenton Santos, PSA PSA Eugenie Sandhu, Reg Reg gb Ross Fields LPN LPN rw1 Neville Quan,ANSELMO RN mb9 Almaz Ray MD MD fg Beck, Gabriela gjb The chart was reviewed and I authenticate all verbal orders and agree with the evaluation and treatment provided.Attachments: :28 [facility] Payment Agreement gjb 10/31 09:56 T-Sheet-- Draft Copy gb Chart Complete MTDD
[2016-11-02 06:07] VITALS: BP 138/86
[2016-11-02] MEDS: VENLAFAXINE **XR** 75MG CAPSULE PO SCH (09:09)
[2016-11-02 18:00] VITALS: BP 116/81
[2016-11-03 06:18] VITALS: BP 125/87
[2016-11-03] MEDS: VENLAFAXINE **XR** 75MG CAPSULE PO SCH (08:32)
--- NOTE | 2016-11-03 09:32 | IPN ---
DATE: 11/02/2016 The patient today states "I'm feeling better." She says her mood is about a 3/10 where the closer to 10/10 is the most depressed. She says she is feeling better because her family will be visiting her today and she is really missing them. She continues to grieve over the of her cousin. She says she slept well without trazodone last night. MENTAL STATUS EXAMINATION: She is awake and oriented times three. Eye contact is fair. Psychomotor activity is normal. There is no formal thought disorder noted. She says her mood is "better." Affect is full range and appropriate. She is not psychotic, suicidal, or homicidal. Concentration is fair. Memory intact. Insight and judgment is fair. DIAGNOSES: 1. Adjustment disorder with disturbance of mood and conduct. 2. Rule out major depressive disorder. TREATMENT PLAN: At this point, we will further observe and evaluate this patient for ongoing symptoms of depression. We will continue to monitor the patient for further stabilization in her mood and resolution of suicidal ideations. We will continue to titrate her medication as indicated.
[2016-11-03 18:00] VITALS: BP 123/64
[2016-11-03] MEDS: traZODone 100 MG TAB PO PRN (22:55)
--- NOTE | 2016-11-04 01:26 | IPN ---
DATE OF SERVICE: 11/03/2016 The patient today states, "I'm doing good." She says she is not depressed. She slept well. She has no complaints. MENTAL STATUS EXAMINATION: This patient is alert and oriented times three. Eye contact is fair. Psychomotor activity is normal. There is no formal thought disorder. She says her mood is good. Affect is full range and appropriate. She is not psychotic, suicidal, homicidal. Concentration is fair. Memory is intact. Insight and judgment is fair. DIAGNOSIS: Adjustment reaction with mixed disturbance of mood and conduct. Rule out major depressive disorder. TREATMENT PLAN: At this point, we will further observe and evaluate this patient for continued elevation and stabilization of her mood. We will continue to monitor the patient for continued resolution of suicidal ideation.
[2016-11-04 06:00] VITALS: BP 99/56
[2016-11-04] MEDS: VENLAFAXINE **XR** 75MG CAPSULE PO SCH (08:18)
[2016-11-04 18:00] VITALS: BP 124/60
--- NOTE | 2016-11-04 20:05 | IPNPDOC ---
[facility] Progress Note Progress Note DATE OF SERVICE: 11/04/16 HISTORY: Patient states she was a little down and was missing her cousin. "I had an impulsive suicide attempt." "There wasn't anything going on, I wanted to talk to my cousin and I couldn't ". Patient states her cousin killed himself approximately 15 months ago. Patient states he hung himself and was out of the blue, not expected. Patient states besides being her cousin, he was her best friend.Patient states there were no extra stressors, recent tragic events, deaths, family or work drama. Patient states she has had one other suicide attempt when she was 17 years old. That was also an overdose, however patient states she was not admitted as she lied to the physician denying she wanted to and was sent home. Patient states prior to her admission in August she started cutting again for the release. Prior to that patient hadn't cut for 3 years. PAST PSYCHIATRIC HISTORY: Patient states she's had 3 psychiatric events. The first was at age 17 when she overdosed on some medication. She was evaluated in the ER but not admitted. Patient states she talked doctors out of admission. Second event was when she was 18 years old and self harming. Patient states she had suicidal thoughts at school and was sent [facility] child [facility] adolescent unit. Patient feels this was a situational depression as her great-grandmother had just . Patient states her third event was when she was 21 years old. In that admission she had started cutting again and was having suicidal thoughts. Patient states since age 17 when she cuts it's for the release. Patient states she does not cut to try to kill herself and bleed to or anything like that, it is only for the release. MENTAL STATUS EXAMINATION: Patient is a 21-year-old overweight female who is pleasant and cooperative, appears bright and smiling. Patient is currently wearing her own clothes. Patient appears well-groomed. Patient was assessed in her room. Patient was in her bathroom when provider came in. Speech: Is of normal rate and volume. Patient is articulate, coherent and spontaneous Thought processes: Clear and goal directed. Thought content: Logical and rational. Abstract reasoning: Adequate Computation: Adequate Associations: Intact. Abnormal or psychotic thoughts: Patient denies hallucinations, delusions, obsessions or compulsions. Patient denies homicidal or suicidal ideation. Judgment: Improving. Insight: Improving. Oriented to: Time, place, person and surroundings. Recent/remote memory: Patient feels her memory worsens with stress or lack of sleep. Attention span and concentration: Good. Language: No. Fund of knowledge: Adequate. Mood: "Good, a little off yesterday but went to karaoke ". Affect: Appropriate, rational, logical. DIAGNOSES: 1. Prolonged grief. 2. Adjustment reaction mixed with effect on mood and conduct. 3. Major depressive disorder. ASSESSMENT: Patient in bathroom when provider approached. Patient responds appropriately when provider comes into her room. Patient noted to be in the hallways and activity room for meals and groups. Patient is pleasant and cooperative and easily engaged. Patient's affect seems brighter. Patient denies hallucinations, delusions, compulsions. Pt. states she is obsessed by counting, everything has to be an even number. Patient denies homicidal or suicidal ideation. Patient is preoccupied with her cousin's from 15 months ago but is finding helpful strategies to cope with this. Pt. feels Effexor XR 150 mg has improved her mood and ability to deal with her issues. Patient is encouraged to participate in unit programming and activities. Patient states that when she is ready she would like to discharge home and follow up with her provider in the [place] area. Pt. to continue Trazodone 100 mg by mouth daily at bedtime as needed for sleep, Effexor XR 150 mg by mouth every morning. Patient states she's been on rapid release Effexor which is not available through our hospital formulary. MANAGEMENT PLAN: Patient to acclimate to the unit. Patient to attend groups and participate in unit programming to develop effective coping strategies. Maintain safety precautions. Patient to be engaged in discharge planning process to ensure safe and effective discharge plan. Patient to follow-up with primary care physician upon discharge. Patient to resume therapy upon discharge. Meds to be restarted/started. In to be evaluated for mood stabilization and affect. Pt. is probable discharge for 11/05/16. Vital Signs/I&O Vital Signs Date Time Temp Pulse Resp B/P Pulse Ox O2 Delivery O2 Flow Rate FiO2 11/04/16 18:00 97.7 106 16 124/60 Current Medications Current Medications Acetaminophen (Tylenol) 650 mg Q6HP PRN PO HEADACHE or DISCOMFORT; Start at 20:00; Stop 11/29/16 at 19:59 Al Hydrox/Mg Hydrox/Simethicone (Mylanta) 30 ml Q4HP PRN PO HEARTBURN/ INDIGESTION; Start 10/30/16 at 20:00; Stop 11/29/16 at 19:59 Home Med (Med Rec Complete!) ASDIRECTED XX ; Start 10/30/16 at 23:00; Stop 09/05 at 23:00; Status DC Magnesium Hydroxide (Milk Of Magnesia) 30 ml DAILYPRN PRN PO CONSTIPATION; Start 10/30/16 at 20:00; Stop 11/29/16 at 19:59 Trazodone HCl (Desyrel) 50 mg QHSP PRN PO INSOMNIA; Start 10/30/16 at 20:00; Stop 10/31/16 at 17:35; Status DC Trazodone HCl (Desyrel) 100 mg QHSP PRN PO INSOMNIA Last administered on 22:55; Start 10/31/16 at 17:45; Stop 11/30/16 at 17:44 Venlafaxine HCl (Effexor Xr) 150 mg QAM PO Last administered on 11/04/16 08:18; Start 10/31/16 at 09:00; Stop 11/30/16 at 08:59 Allergies Coded Allergies: No Known Drug Allergy (Verified Allergy, Unknown, 10/30/16) MAXIMUS DEVINE NP Nov 04, 2016 20:05
[2016-11-04] MEDS: traZODone 100 MG TAB PO PRN (22:51)
[2016-11-05 06:31] VITALS: BP 115/58
[2016-11-05] MEDS: VENLAFAXINE **XR** 75MG CAPSULE PO SCH (08:42)
[2016-11-05] MEDS ORDERED: atarax PO (09:03)
[2016-11-05] MEDS ORDERED: TRAZ10TA PO ×2 (09:03→10:18)
[2016-11-05] MEDS ORDERED: VENL75CA PO ×2 (09:03→10:18)
[2016-11-05] MEDS ORDERED: TRAZ100T4 PO (10:06)
[2016-11-05] MEDS ORDERED: HYDR-4274 PO (10:10)
--- NOTE | 2016-11-05 20:09 | DS.PDOC ---
[facility] Discharge Summary Discharge Summary DATE OF ADMISSION: Oct 30, 2016 at 22:17 DATE OF DISCHARGE: Nov 05, 2016 at 11:05 HISTORY: Patient states she was a little down and was missing her cousin. "I had an impulsive suicide attempt." "There wasn't anything going on, I wanted to talk to my cousin and I couldn't ". Patient states her cousin killed himself approximately 15 months ago. Patient states he hung himself and was out of the blue, not expected. Patient states besides being her cousin, he was her best friend.Patient states there were no extra stressors, recent tragic events, deaths, family or work drama. Patient states she has had one other suicide attempt when she was 17 years old. That was also an overdose, however patient states she was not admitted as she lied to the physician denying she wanted to and was sent home. Patient states prior to her admission in August she started cutting again for the release. Prior to that patient hadn't cut for 3 years. PAST PSYCHIATRIC HISTORY: Patient states she's had 3 psychiatric events. The first was at age 17 when she overdosed on some medication. She was evaluated in the ER but not admitted. Patient states she talked doctors out of admission. Second event was when she was 18 years old and self harming. Patient states she had suicidal thoughts at school and was sent [facility] child and adolescent unit. Patient feels this was a situational depression as her great-grandmother had just . Patient states her third event was when she was 21 years old. In that admission she had started cutting again and was having suicidal thoughts. Patient states since age 17 when she cuts it's for the release. Patient states she does not cut to try to kill herself and bleed to or anything like that, it is only for the release. TREATMENT AND PROGRESS ON THE UNIT: Patient sleeping when provider approached. Patient responds appropriately when provider comes into her room. Patient noted to be in the hallways and activity room for meals and groups. Patient is pleasant and cooperative and easily engaged. Patient's affect seems brighter. Patient denies hallucinations, delusions, compulsions. Pt. states she is obsessed by counting, everything has to be an even number. Patient is preoccupied with her cousin's from 15 months ago but is finding helpful strategies to cope with this. Pt. is stable with no homicidal or suicidal ideation. Pt. denies any thoughts of self harm or cutting. Pt. feels Effexor XR 150 mg has improved her mood and ability to deal with her issues. Patient states she would like to discharge home and follow up with her provider in the [place] area. Pt. to continue Trazodone 100 mg by mouth daily at bedtime as needed for sleep, Effexor XR 150 mg by mouth every morning. Patient states she' s been on rapid release Effexor which is not available through our hospital formulary. MENTAL STATUS EXAMINATION ON DISCHARGE: Patient is a 21-year-old overweight female who is pleasant and cooperative, appears bright and smiling. Patient is currently wearing her own clothes. Patient appears well-groomed. Patient was assessed in her room. Patient was in her bathroom when provider came in. Speech: Is of normal rate and volume. Patient is articulate, coherent and spontaneous Thought processes: Clear and goal directed. Thought content: Logical and rational. Abstract reasoning: Adequate Computation: Adequate Associations: Intact. Abnormal or psychotic thoughts: Patient denies hallucinations, delusions, obsessions or compulsions. Patient denies homicidal or suicidal ideation. Pt. denies thoughts of cutting or self harm. Judgment: Improving. Insight: Improving. Oriented to: Time, place, person and surroundings. Recent/remote memory: Patient feels her memory worsens with stress or lack of sleep. Attention span and concentration: Good. Language: No. Fund of knowledge: Adequate. Mood: "Good". Affect: Appropriate, rational, logical. MEDICATIONS ON DISCHARGE: Please see below. Trazodone 100 mg by mouth daily at bedtime as needed for sleep, Effexor XR 150 mg by mouth every morning, Hydroxyzine hcl 50 mg po q 6 h prn for anxiety/agitation, may use 1/2 tab. DIAGNOSES ON DISCHARGE: 1. Adjustment reaction mixed with effect on mood and conduct. 2. Major depressive disorder. 3. Prolonged grief FOLLOWUP ARRANGEMENTS: Patient to follow-up with primary care physician upon discharge. Patient to resume therapy upon discharge. 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 TIME SPENT: 25 minutes. Vital Signs Vital Sign - Last 24 Hours 11/05/16 06:31 Temp 98.7 Pulse 70 Resp 16 B/P 115/58 Medications Scheduled Etonogestrel (Nexplanon) 68 Mg Imp 68 MG SC ASDIRECTED CONTROL (Reported) IMPLANTED SOMETIME IN MARCH 2016 Venlafaxine HCl (Venlafaxine HCl ER) 75 Mg Cap 150 MG PO QAM ANXIETY/AGITATION Scheduled PRN Hydroxyzine HCl (Hydroxyzine HCl) 50 Mg Tab 50 MG PO Q6HP PRN PRN ANXIETY/ AGITATION Trazodone HCl (Trazodone HCl) 100 Mg Tab 100 MG PO QHSP PRN PRN INSOMNIA Allergies Coded Allergies: No Known Drug Allergy (Verified Allergy, Unknown, 10/30/16) MAXIMUS DEVINE NP Nov 05, 2016 20:09
== END 2016-11-05 11:05 | disposition home or self-care (01) | DRG 755 ==
LOC: M ED 18:33 → M PSY 22:17
PROVIDERS: ADMIT Psychiatry & Neurology Psychiatry; ATTEND Psychiatry & Neurology Psychiatry
DX: F43.25 Adjustment disorder with mixed disturbance of emotions and conduct (principal); F32.9 Major depressive disorder, single episode, unspecified; F17.210 Nicotine dependence, cigarettes, uncomplicated; E66.3 Overweight; Z91.5 Personal history of self-harm; F43.21 Adjustment disorder with depressed mood; Z81.8 Family history of other mental and behavioral disorders; Z63.4 Disappearance and death of family member; Z79.899 Other long term (current) drug therapy